=== PATIENT | female | born 1980 | race Two or more races ===

== ENCOUNTER 2024-12-22 03:20 | Inpatient (IN) | payer OTHER ==
[~2024-12-22] VITALS: Ht 160 cm; Wt 73.1 kg
[2024-12-22 04:03] LABS: Urine Bacteria None Seen /hpf (None Seen)
[2024-12-22 04:25] LABS: Urine Blood Negative /uL (Negative); Urine Clarity Turbid (Clear); Urine Color Yellow (Yellow); Urine Mucus FEW (None Seen); Urine Protein, UAD TRACE (Negative); Urine Specific Gravity 1.019 (1.001-1.035); Urine Squamous Epithelial Cell MOD /hpf (<5); Urine Urobilinogen Normal (Negative); Urine WBC 3 /HPF (0-5); Urine pH 6.5 (5.0-9.0)
--- NOTE | 2024-12-22 04:36 | ED.PDOC ---
GI ASSESSMENT HPI Comments 44 year old female presents to the ED with a chief complaint of epigastric pain onset yesterday (12/21/2024) around 12:00. Patient states she began experiencing epigastric pain, described as an aching sensation as well as nausea, vomiting, diarrhea, sweats. Patient denies any past medical history as well as constipation, chest pain, shortness of breath, fevers, chills, congestion, cough, sick contact, dysuria, hematuria. No other symptoms or modifying factors present at this time. 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 Family History Family History: Reviewed,noncontributory to illness, No family hx of Cancer, No family hx of DM, No family hx of Heart panda, No family hx of HTN, No family hx ofKidney panda, No family hx of Liver panda, No family hx of Lung panda, No family hx of Stroke Social History Smoker: Non-Smoker Alcohol: Occasionally Drugs: Denies Drug Use Lives In: Home Constitutional: reports: sweats; denies: chills, diaphoresis, fatigue, fever, malaise, weakness, others EENTM: denies: blurred vision, double vision, ear bleeding, ear discharge, ear drainage, ear pain, ear ringing, eye pain, eye redness, hearing loss, mouth pain, mouth swelling, nasal discharge, nose bleeding, nose congestion, nose pain, photophobia, tearing, throat pain, throat swelling, voice changes, others Respiratory: denies: cough, hemoptysis, orthopnea, SOB at rest, shortness of breath, SOB with excertion, stridor, wheezing, others Cardiovascular: denies: chest pain, dizzy spells, diaphoresis, Dyspnea on exertion, edema, irregular heart beat, left arm pain, lightheadedness, palpitations, PND, syncope, others Gastrointestinal: reports: abdominal pain, diarrhea, nausea, vomiting; denies: abdomen distended, blood streaked bowels, constipated, dysphagia, difficulty swallowing, hematemesis, melena, poor appetite, poor fluid intake, rectal bleeding, rectal pain, others Genitourinary: denies: abnormal vagina bleeding, burning, dyspareunia, dysuria, flank pain, frequency, hematuria, incontinence, pain, , vagina discharge, urgency, others Neurological: denies: dizziness, fainting, headache, left sided numbness, left sided weakness, numbness, paresthesia, pre-existing deficit, right sided numbness, right sided weakness, seizure, speech problems, tingling, tremors, weakness, others Musculoskeletal: denies: back pain, gout, joint pain, joint swelling, muscle pain, muscle stiffness, neck pain, others Integumetry: denies: bruises, change in color, change in hair/nails, dryness, laceration, lesions, lumps, rash, wounds, others Allergic/Immunocompromised: denies: Difficulty Healing, Frequent Infections, Hives, Itching, others Hematologic/Lymphatic: denies: anemia, blood clots, easy bleeding, easy bruising, swollen glands, others Endocrine: denies: excessive hunger, excessive sweating, excessive thirst, excessive urination, flushing, intolerance to cold, intolerance to heat, unexplained weight gain, unexplained weight loss, others Psychiatric: denies: anxiety, bipolar disorder, depression, hopeless, panic disorder, schizophrenia, sleepless, suicidal, others All Other Systems: Reviewed and Negative Physical Exam General Appearance: Moderate Distress HEENT: Other (Moist mucous membranes) Neck: Full Range of Motion, Normal Inspection Respiratory: Lungs Clear, No Accessory Muscle Use, No Respiratory Distress, Normal Breath Sounds Cardiovascular: No Edema, No JVD, Regular Rate/Rhythm Breast Exam: Deferred Gastrointestinal: Epigastric, LUQ, RUQ, Soft, Tenderness Genitalia: Deferred Pelvic: Deferred Rectal: Deferred Extremities: Normal inspection, Normal range of motion, Non-tender, No pedal edema Neurologic: Alert (Oriented x4), Other (Tearful. Ambulatory without difficulty. No gross focal deficit.) Cerebellar Function: NOT DONE Reflexes: NOT DONE Skin: Dry, Normal Color, Warm Lymphatic: NOT DONE Was a procedure done? Was a procedure done?: No GI differential Dx Differential Diagnosis: Appendicitis, Diverticular disease, Gastritis/PUD, Gastroenteritis, Inflammatory BD, Ischemic Bowel, Pancreatitis, UTI, Dehydration, Electrolyte Imbalance, Food Poisoning, , Bacterial, Parasitic, Viral, Hypovolemia, Renal Failure, Stress Ulcer, Kidney Stone X-Ray, Labs, Meds, VS Vital Signs Date Time Temp Pulse Resp B/P (MAP) Pulse Ox O2 Delivery O2 Flow Rate FiO2 12/22/24 11:51 84 16 109/66 (80) 99 12/22/24 10:33 16 97 Room Air* 0 21 12/22/24 09:15 90 18 131/80 12/22/24 08:51 96 18 96 Room Air 12/22/24 08:51 99.2 98 18 128/86 (100) 96 99.2 12/22/24 08:40 92 22 131/79 12/22/24 06:19 80 16 141/85 (103) 100 12/22/24 06:17 80 16 141/85 12/22/24 04:56 109 16 140/90 12/22/24 04:51 98.9 109 16 140/90 (107) 96 98.9 12/22/24 04:51 109 16 96 Room Air* 0 21 12/22/24 03:34 98.2 127 20 150/81 (104) 98 Lab Test 12/22/24 04:11 12/22/24 03:40 Range/Units White Blood Count 9.1 4.4-10.8 10^3/uL Red Blood Count 4.79 4.0-5.20 10^6/uL Hemoglobin 12.9 12.2-16.2 g/dL Hematocrit 38.6 36.0-46.0 % Mean Corpuscular Volume 80.6 80.0-100.0 fL Mean Corpuscular Hemoglobin 26.9 L 28.0-32.0 pg Mean Corpuscular Hemoglobin Concent 33.4 32.0-36.0 g/dL Red Cell Distribution Width 16.1 H 11.8-14.3 % Platelet Count 253 140-450 10^3/uL Mean Platelet Volume 9.0 6.9-10.8 fL Neutrophils (%) (Auto) 81.6 H 37.0-80.0 % Lymphocytes (%) (Auto) 10.4 10.0-50.0 % Monocytes (%) (Auto) 7.1 0.0-12.0 % Eosinophils (%) (Auto) 0.2 0.0-7.0 % Basophils (%) (Auto) 0.7 0.0-2.0 % Neutrophils # (Auto) 7.4 1.6-8.6 10 ^3/uL Lymphocytes # (Auto) 0.9 0.4-5.4 10 ^3/uL Monocytes # (Auto) 0.6 0-1.3 10 ^3/uL Eosinophils # (Auto) 0 0-0.8 10 ^3/uL Basophils # (Auto) 0.1 0-0.2 10 ^3/uL Nucleated Red Blood Cells 0.1 % Platelet Estimate Adequate Sodium Level 137 136-145 mmol/L Potassium Level 4.3 3.5-5.1 mmol/L Chloride Level 102 98-107 mmol/L Carbon Dioxide Level 26 20-31 mmol/L Anion Gap 9 5-15 Blood Urea Nitrogen 8 L 9-23 mg/dL Creatinine 0.81 0.550-1.02 mg/dL Glomerular Filtration Rate Calc 93 >90 mL/min BUN/Creatinine Ratio 9.9 L 10.0-20.0 Serum Glucose 131 H 74-106 mg/dL Calcium Level 10.1 8.7-10.4 mg/dL Total Bilirubin 1.1 H 0.2-1.0 mg/dL Aspartate Amino Transferase (AST) 228 H 13-40 U/L Alanine Aminotransferase (ALT) 136 H 7-40 U/L Alkaline Phosphatase 105 46-116 U/L Total Protein 7.6 5.7-8.2 g/dL Albumin 4.9 H 3.2-4.8 g/dL Lipase > 3500 H 12-53 U/L Beta HCG, Quantitative 0.2 L 1.5-4.2 mIU/mL Urine Color Yellow Yellow Urine Clarity Turbid H Clear Urine pH 6.5 5.0-9.0 Urine Specific [place] 1.019 1.001-1.035 Urine Protein Trace H Negative Urine Ketones Trace Negative Urine Blood Negative Negative /uL Urine Nitrite Negative Negative Urine Bilirubin Negative Negative Urine Urobilinogen Normal Negative mg/dL Urine Leukocyte Esterase Trace Negative /uL Urine RBC 3 0 - 4 /hpf Urine Microscopic WBC 3 0-5 /HPF Urine Squamous Epithelial Cells Mod <5 /hpf Urine Bacteria None seen None Seen /hpf Urine Mucus Few None Seen Urine Glucose Normal Normal mg/dL Current Medications Medications (Trade) Dose Ordered Sig/Akira Route Start Time Stop Time Status Last Admin Sodium Chloride 1,000 ml @ 1,000 mls/hr Q1H ONCE IV 12/22/24 04:15 12/22/24 05:14 DC 12/22/24 04:56 Ondansetron HCl (Zofran) 4 mg ONCE ONCE IV 12/22/24 04:15 12/22/24 04:16 DC 12/22/24 04:57 Morphine Sulfate 4 mg ONCE ONCE IV 12/22/24 04:15 12/22/24 04:16 DC 12/22/24 04:56 Pantoprazole Sodium (Protonix) 40 mg ONCE ONCE IV 12/22/24 04:15 12/22/24 04:16 DC 12/22/24 04:57 Morphine Sulfate 4 mg ONCE ONCE IV 12/22/24 08:45 12/22/24 08:46 DC 12/22/24 08:40 Ondansetron HCl (Zofran) 4 mg ONCE ONCE IV 12/22/24 08:45 12/22/24 08:46 DC 12/22/24 08:40 Sodium Chloride 2,000 ml @ 1,000 mls/hr Q2H ONCE IV 12/22/24 09:15 12/22/24 11:14 DC 12/22/24 09:16 PROCEDURE(s): ABPL - CT AB PEL WO CON-NO ORAL OR IV REASON: epig pain n/v/d ORDER NUMBER(s): [id number], ACCESSION NUMBER(s): [id number] EXAM: CT Abdomen and Pelvis With Intravenous Contrast CLINICAL INDICATION: epig pain n/v/d TECHNIQUE: Axial computed tomography images of the abdomen and pelvis with intravenous contrast. This CT exam was performed using one or more of the following dose reduction techniques: automated exposure control, adjustment of the mA and/or kV according to patient size, and/or use of iterative reconstruction technique. CONTRAST: COMPARISON: None FINDINGS: LUNG BASES: Unremarkable. No mass. No consolidation. ABDOMEN: LIVER: Unremarkable. No mass. GALLBLADDER AND BILE DUCTS: Unremarkable. No calcified stones. No ductal dilation. PANCREAS: There is inflammation around the pancreas consistent with acute pancreatitis. No abscess or pseudocyst. No ductal dilation. SPLEEN: Unremarkable. No splenomegaly. ADRENALS: Unremarkable. No mass. KIDNEYS AND URETERS: Unremarkable. No solid mass. No hydronephrosis. STOMACH AND BOWEL: Unremarkable. No obstruction. No mucosal thickening. PELVIS: APPENDIX: No findings to suggest acute appendicitis. BLADDER: Unremarkable. No mass. REPRODUCTIVE: Unremarkable as visualized. ABDOMEN and PELVIS: INTRAPERITONEAL SPACE: Unremarkable. No free air. No significant fluid collection. BONES/JOINTS: No acute fracture. No dislocation. SOFT TISSUES: Unremarkable. VASCULATURE: Unremarkable. No abdominal aortic aneurysm. LYMPH NODES: Unremarkable. No enlarged lymph nodes. OTHER FINDINGS: . . . .. IMPRESSION: There is inflammation around the pancreas consistent with acute pancreatitis. No abscess or pseudocyst. X-Ray, Labs, Meds, VS Comment 44-year-old female with no significant past medical history complaining of epigastric pain, nausea and vomiting Vitals remarkable for heart rate 127, BP 150/81 Exam remarkable for epigastric, left upper quadrant and right upper quadrant tenderness to palpation Rhythm strip independently interpreted by me: Sinus tach, rate 109, no ectopy. CT abdomen and pelvis: IMPRESSION: There is inflammation around the pancreas consistent with acute pancreatitis. No abscess or pseudocyst. CBC unremarkable, metabolic panel remarkable for total bilirubin 1.1, AST 228, ALT 136, lipase greater than 3500, hCG negative, UA unremarkable Patient treated with the following in the ED: 1 L 0.9 normal saline IV bolus, morphine 4 mg IV, Zofran 4 mg IV, Protonix 40 mg IV On re-evaluation, patient states pain has somewhat improved but is still present. Vitals were stable. Plan is to admit the patient for pain and emesis control and GI evaluation. Addendum by Dr. Alex: Patient was signed out to me by the outgoing physician. The patient was noted to have elevated total bili, AST and ALT. Patient also noted have elevated lipase. There was a discussion about a complaining MRCP. Dr. Ruiz reached out to Dr. Meza (per report) he was eventually approved the MRCP. MRCP had multiple findings including choledocholithiasis, cholecystitis, enlarged common bile duct stone and acute pancreatitis. Dr. Ruiz reached out to our technology professional surgeon who suggested transfer as they will need an ERCP. Patient was tent atively accepted by Dr. Newell at [facility]. GI at [facility] states that MRCP is read as no stone in the common bile duct. The patient may have had a stone that she has been past. I recached back out to Dr. Carranza. The plan of action is to admit the patient for acute pancreatitis and acute cholecystitis. They should be medically managed. Once the pancreatitis is resolved, Dr. Wood will reassess the need for a cholecystectomy. This may be as an outpatient. The patient was given Zosyn and 2L IVF bolus. Total critical care time: Approximately 92 minutes Due to a high probability of clinically significant, life threatening deterioration, the patient required my highest level of preparedness to intervene emergently and I personally spent this critical care time directly and personally managing the patient. This critical care time included obtaining a history; examining the patient; pulse oximetry; ordering and review of studies; arranging urgent treatment with development of a management plan; evaluation of patient's response to treatment; frequent reassessment; and, discussions with other providers. This critical care time was performed to assess and manage the high probability of imminent, life-threatening deterioration that could result in multi-organ failure. It was exclusive of separately billable procedures and treating other patients and teaching time. Please see MDM section and the rest of the note for further information on patient assessment and treatment. Time of 1ST Reevaluation: 04:30 Reevaluation 1ST: Unchanged Patient Education/Counseling: Diagnosis, Treatment, Prognosis Family Education/Counseling: No Family Present Additional Information The following tests were ordered, and results were reviewed by me: UA, CBC, CMP, BETA HCG, LIPASE, UA, CT AB PEL WO CON I reviewed and agreed with the following test results read by other providers: CT AB PEL WO CON I discussed treatment and results with medical personnel and: patient, Departure 1 Departure Time of Disposition: 05:47 Impression: Primary Impression: Acute pancreatitis Qualified Codes: K85.90 - Acute pancreatitis without necrosis or infection, unspecified Disposition: ADMITTED INPATIENT Admit to: Med Surg Condition: Guarded Critical Care Note Critical Care Time?: Yes (>90min-critical care time only) Critical care comment: Total critical care time: Approximately 92 minutes Due to a high probability of clinically significant, life threatening deterioration, the patient required my highest level of preparedness to intervene emergently and I personally spent this critical care time directly and personally managing the patient. This critical care time included obtaining a history; examining the patient; pulse oximetry; ordering and review of studies; arranging urgent treatment with development of a management plan; evaluation of patient's response to treatment; frequent reassessment; and, discussions with other providers. This critical care time was performed to assess and manage the high probability of imminent, life-threatening deterioration that could result in multi-organ failure. It was exclusive of separately billable procedures and treating other patients and teaching time. Please see MDM section and the rest of the note for further information on patient assessment and treatment. Stability Stability form required: No Heart Score Heart Score: Heart Score Response (Comments) Value History N/A 0 EKG N/A 0 Age N/A 0 Risk Factors N/A 0 Troponin N/A 0 Total 0 I personally scribed for TRACY GOTTLIEB MD ([email or web address]) on 12/22/24 at 04:36. Electronically submitted by Mi Rivas ([email or web address]). I personally scribed for TRACY GOTTLIEB MD ([email or web address]) on 12/22/24 at 04:46. Electronically submitted by Mi Rivas ([email or web address]). TRACY GOTTLIEB MD Dec 22, 2024 04:36 SAMIR ALEX MD Dec 22, 2024 11:24
[2024-12-22 04:51] VITALS: PULSE 109; RESP 16; O2SAT 96
[2024-12-22 04:52] LABS: Eosinophils # (auto) 0 10 ^3/uL (0-0.8); Lymphocytes # (auto) 0.9 10 ^3/uL (0.4-5.4); Monocytes # (auto) 0.6 10 ^3/uL (0-1.3)
[2024-12-22 04:53] LABS: Basophils # (auto) 0.1 10 ^3/uL (0-0.2); Basophils % (auto) 0.7 % (0.0-2.0); Eosinophils % (auto) 0.2 % (0.0-7.0); Hematocrit 38.6 % (36.0-46.0); Hemoglobin 12.9 g/dL (12.2-16.2); Lymphocytes % (auto) 10.4 % (10.0-50.0); Mean Corpuscular Hemoglobin 26.9 pg (28.0-32.0); Mean Corpuscular Hgb Conc. 33.4 g/dL (32.0-36.0); Mean Corpuscular Volume 80.6 fL (80.0-100.0); Monocytes % (auto) 7.1 % (0.0-12.0); Neutrophils # (auto) 7.4 10 ^3/uL (1.6-8.6); Neutrophils % (auto) 81.6 % (37.0-80.0); Nucleated Red Blood Cells % 0.1 %; Platelet Count (auto) 253 10^3/uL (140-450); Red Blood Cells 4.79 10^6/uL (4.0-5.20); Red Cell Distribution Width 16.1 % (11.8-14.3); White Blood Cell 9.1 10^3/uL (4.4-10.8)
[2024-12-22] MEDS: MORPHINE SULFATE 4 MG/ML SYR/VIAL IV ONE ×2 (04:56→08:40)
[2024-12-22] MEDS: SODIUM CHLORIDE 0.9% 1,000 ML IV ONE ×2 (04:56→14:14)
[2024-12-22] MEDS: PANTOPRAZOLE 40 MG/10 ML VIAL INJ IV ONE (04:57)
[2024-12-22] MEDS: ONDANSETRON HCL 4 MG/2 ML VIAL IV ONE ×3 (04:57→14:14)
[2024-12-22 05:00] LABS: Alkaline Phosphatase 105 U/L (46-116); Anion Gap 9 (5-15); BUN/Creatinine Ratio 9.9 (10.0-20.0); Bilirubin, Total 1.1 mg/dL (0.2-1.0); Calcium 10.1 mg/dL (8.7-10.4); Carbon Dioxide 26 mmol/L (20-31); Chloride 102 mmol/L (98-107); Potassium 4.3 mmol/L (3.5-5.1); Sodium 137 mmol/L (136-145); Total Protein 7.6 g/dL (5.7-8.2)
[2024-12-22 05:04] LABS: Alanine Aminotransferase 136 U/L (7-40); Albumin 4.9 g/dL (3.2-4.8); Aspartate Aminotransferase 228 U/L (13-40); Blood Urea Nitrogen 8 mg/dL (9-23); Glucose 131 mg/dL (74-106)
[2024-12-22 05:23] LABS: Platelet Estimate Adequate
--- NOTE | 2024-12-22 05:24 | DVH ---
EXAM: CT Abdomen and Pelvis With Intravenous Contrast CLINICAL INDICATION: epig pain n/v/d TECHNIQUE: Axial computed tomography images of the abdomen and pelvis with intravenous contrast. Th is CT exam was performed using one or more of the following dose reduction techniques: automated exp osure control, adjustment of the mA and/or kV according to patient size, and/or use of iterative zacarias nstruction technique. CONTRAST: COMPARISON: None FINDINGS: LUNG BASES: Unremarkable. No mass. No consolidation. ABDOMEN: LIVER: Unremarkable. No mass. GALLBLADDER AND BILE DUCTS: Unremarkable. No calcified stones. No ductal dilation. PANCREAS: There is inflammation around the pancreas consistent with acute pancreatitis. No abscess or pseudocyst. No ductal dilation. SPLEEN: Unremarkable. No splenomegaly. ADRENALS: Unremarkable. No mass. KIDNEYS AND URETERS: Unremarkable. No solid mass. No hydronephrosis. STOMACH AND BOWEL: Unremarkable. No obstruction. No mucosal thickening. PELVIS: APPENDIX: No findings to suggest acute appendicitis. BLADDER: Unremarkable. No mass. REPRODUCTIVE: Unremarkable as visualized. ABDOMEN and PELVIS: INTRAPERITONEAL SPACE: Unremarkable. No free air. No significant fluid collection. BONES/JOINTS: No acute fracture. No dislocation. SOFT TISSUES: Unremarkable. VASCULATURE: Unremarkable. No abdominal aortic aneurysm. LYMPH NODES: Unremarkable. No enlarged lymph nodes. OTHER FINDINGS: . . . .. IMPRESSION: There is inflammation around the pancreas consistent with acute pancreatitis. No abscess or pseudoc yst.
[2024-12-22 05:29] LABS: Lipase > 3500 U/L (12-53)
--- NOTE | 2024-12-22 06:50 | DVH ---
EXAM: US Abdomen Limited, Right Upper Quadrant CLINICAL INDICATION: r/o gallstone pancreatitis TECHNIQUE: Real-time ultrasound of the right upper quadrant with image documentation. COMPARISON: None FINDINGS: LIVER: Ill-defined echogenic lesion in the right hepatic lobe measuring 5.7 x 3.3 x 3.1 cm could re present focal fatty infiltration. This can be further evaluated with CT scan with and without contras t. Liver measures up to 16.0 cm. No intrahepatic bile duct dilation. GALLBLADDER: Cholelithiasis. Positive Sanchez's. COMMON BILE DUCT: Unremarkable as visualized. No stones. No dilation. Common bile duct measures 0.11 cm in diameter. PANCREAS: Pancreas is echogenic and appears edematous. RIGHT KIDNEY: Right kidney measures up to 8.8 cm. No stones. No hydronephrosis. OTHER FINDINGS: . . . .. IMPRESSION: 1. Ill-defined echogenic lesion in the right hepatic lobe measuring 5.7 x 3.3 x 3.1 cm could represe nt focal fatty infiltration. This can be further evaluated with CT scan with and without contrast. . 2. Cholelithiasis with positive Sanchez's sign concerning for evolving acute cholecystitis. Concurre nt acute pancreatitis can not be excluded.
[2024-12-22] MEDS: SODIUM CHLORIDE 0.9% 2,000 ML IV ONE (09:16)
--- NOTE | 2024-12-22 10:30 | DVH ---
CLINICAL INFORMATION: Pancreatitis. TECHNIQUE: Multisequence multiplanar MRI images of the abdomen were obtained without IV contrast. Alejandro naranjo T2-weighted MRCP images were obtained. 3D MRCP images were created. COMPARISON: CT dated 12/22/2024. Ultrasound dated 12/22/2024. FINDINGS: Mass in the posterior right hepatic lobe measures up to 6.9 cm in greatest dimension, not w ell characterized without postcontrast images. Multiple gallstones are visualized in the gallbladder. There is gallbladder wall thickening pericholecystic fluid. Common bile duct measures up to 8 mm in diameter, mildly dilated. No filling defect or stricture identified in the common bile duct on MRCP i mages. Pancreatic duct appears unremarkable. Moderate peripancreatic inflammatory changes and small a mount of peripancreatic fluid consistent with reported clinical history of acute pancreatitis. No org anized fluid collection identified at this time. Adrenal glands and kidneys appear grossly unremarkab le. No other abnormality identified in the abdomen. IMPRESSION: 1. Cholelithiasis with gallbladder wall thickening and pericholecystic fluid, suspicious for acute ch olecystitis in the appropriate clinical setting. 2. Findings consistent with acute pancreatitis in the appropriate clinical setting. 3. Common bile duct is mildly dilated. No filling defect or stricture identified in the common bile duct on MRCP. 4. Mass in the right hepatic lobe is not well evaluated without postcontrast imaging. Nonemergent [facility] mass protocol MRI recommended.
[2024-12-22 10:33] VITALS: RESP 16; O2SAT 97
[2024-12-22] MEDS ORDERED: NITROGLYCERIN 0.4 MG SL TAB SL PRN (12:45)
[2024-12-22] MEDS ORDERED: MORPHINE SULFATE INJ 2 MG/ml SYRG IV PRN (12:45)
--- NOTE | 2024-12-22 12:53 | DVHHP2 ---
Admitting Diagnosis: abd pain History of Present Illness HPI 44 F comes to ER for abd pain and noted to have cholecystitis on MRCP imaging, no CBD stone, however lipase 3500 suggestive of gallstone pancreatitis. SHe will be admitted for surgical eval and supportive care. Past Medical History Cardiac: No pertinent Hx Central Nervous System: No pertinent Hx GI: No pertinent Hx Hemotology/Oncology: No pertinent Hx Hepatobiliary: No pertinent Hx ENT: No pertinent Hx Review of Systems Constitutional: No symptom reported Eyes: No symptom reported Cardiovascular: No symptom reported Gastrointestinal: Nausea, Vomiting, Abdominal Pain Musculoskeletal: No symptom reported Skin: No symptom reported Psychiatric: No symptom reported Endocrine: No symptom reported H&P Exam Vital Signs Vital Signs Date Time Temp Pulse Resp B/P (MAP) Pulse Ox O2 Delivery O2 Flow Rate FiO2 12/22/24 11:51 84 16 109/66 (80) 99 12/22/24 10:33 Room Air* 0 21 12/22/24 08:51 99.2 99.2 General Appeara: Well developed Neck Exam: Non-tender Nasal Exam: Normal inspection Pulmonary/Respiratory: Normal inspection Cardiovascular/Chest: Normal inspection Labs/Xrays Labs Test 12/22/24 04:11 12/22/24 03:40 Range/Units White Blood Count 9.1 4.4-10.8 10^3/uL Red Blood Count 4.79 4.0-5.20 10^6/uL Hemoglobin 12.9 12.2-16.2 g/dL Hematocrit 38.6 36.0-46.0 % Mean Corpuscular Volume 80.6 80.0-100.0 fL Mean Corpuscular Hemoglobin 26.9 L 28.0-32.0 pg Mean Corpuscular Hemoglobin Concent 33.4 32.0-36.0 g/dL Red Cell Distribution Width 16.1 H 11.8-14.3 % Platelet Count 253 140-450 10^3/uL Mean Platelet Volume 9.0 6.9-10.8 fL Neutrophils (%) (Auto) 81.6 H 37.0-80.0 % Lymphocytes (%) (Auto) 10.4 10.0-50.0 % Monocytes (%) (Auto) 7.1 0.0-12.0 % Eosinophils (%) (Auto) 0.2 0.0-7.0 % Basophils (%) (Auto) 0.7 0.0-2.0 % Neutrophils # (Auto) 7.4 1.6-8.6 10 ^3/uL Lymphocytes # (Auto) 0.9 0.4-5.4 10 ^3/uL Monocytes # (Auto) 0.6 0-1.3 10 ^3/uL Eosinophils # (Auto) 0 0-0.8 10 ^3/uL Basophils # (Auto) 0.1 0-0.2 10 ^3/uL Nucleated Red Blood Cells 0.1 % Platelet Estimate Adequate Sodium Level 137 136-145 mmol/L Potassium Level 4.3 3.5-5.1 mmol/L Chloride Level 102 98-107 mmol/L Carbon Dioxide Level 26 20-31 mmol/L Anion Gap 9 5-15 Blood Urea Nitrogen 8 L 9-23 mg/dL Creatinine 0.81 0.550-1.02 mg/dL Glomerular Filtration Rate Calc 93 >90 mL/min BUN/Creatinine Ratio 9.9 L 10.0-20.0 Serum Glucose 131 H 74-106 mg/dL Calcium Level 10.1 8.7-10.4 mg/dL Total Bilirubin 1.1 H 0.2-1.0 mg/dL Aspartate Amino Transferase (AST) 228 H 13-40 U/L Alanine Aminotransferase (ALT) 136 H 7-40 U/L Alkaline Phosphatase 105 46-116 U/L Total Protein 7.6 5.7-8.2 g/dL Albumin 4.9 H 3.2-4.8 g/dL Lipase > 3500 H 12-53 U/L Beta HCG, Quantitative 0.2 L 1.5-4.2 mIU/mL Urine Color Yellow Yellow Urine Clarity Turbid H Clear Urine pH 6.5 5.0-9.0 Urine Specific [place] 1.019 1.001-1.035 Urine Protein Trace H Negative Urine Ketones Trace Negative Urine Blood Negative Negative /uL Urine Nitrite Negative Negative Urine Bilirubin Negative Negative Urine Urobilinogen Normal Negative mg/dL Urine Leukocyte Esterase Trace Negative /uL Urine RBC 3 0 - 4 /hpf Urine Microscopic WBC 3 0-5 /HPF Urine Squamous Epithelial Cells Mod <5 /hpf Urine Bacteria None seen None Seen /hpf Urine Mucus Few None Seen Urine Glucose Normal Normal mg/dL Assessment/Plan Primary Diagnosis 1) Acute cholecystitis 2) Gallstone pancreatitis plan; admit med surg. NPO, IV fluids, antiemetics, pain control, surgery consult, MRCP shows no CBD stone, AM labs, PT/INR, repeat lipase in AM, will follow medically Plan discussed with: Other (n) SEYMOUR MEDINA MD Dec 22, 2024 12:53
[2024-12-22] MEDS ORDERED: hydrALAZINE HCL 20 MG/ML VL IV PRN (13:00)
--- NOTE | 2024-12-22 13:20 | DVH ---
CHEST RADIOGRAPH Indication: preop Technique: Single frontal view of the chest was obtained Comparison: None FINDINGS: Lines and Tubes: None Lungs: Left basilar atelectasis. The right lung is clear. Pleura: No effusion. No pneumothorax. Cardiomediastinal contours: Unremarkable Bones: No acute osseous abnormality. IMPRESSION: 1. Left basilar atelectasis.
[2024-12-22 13:46] LABS: INR 1.03 (0.9-1.15); Prothrombin Time 10.9 sec (9.3-11.8)
[2024-12-22] MEDS: MORPHINE SULFATE INJ 2 MG/ml SYRG IV SCH (14:15)
[2024-12-22] MEDS: PIPERACILLIN-TAZOB 3.375GM 100 ML IV SCH (15:47)
[2024-12-22 19:00] VITALS: BP 128/77; PULSE 88; RESP 22; TEMP 98.3; O2SAT 97
[2024-12-22 20:00] VITALS: BP 101/58; PULSE 80; RESP 18; TEMP 97.8; O2SAT 97
[2024-12-22 21:00] VITALS: BP 125/77; PULSE 88; RESP 29; TEMP 98.4; O2SAT 97
[2024-12-23] VITALS (8 sets, daily range): BP systolic 105–135; BP diastolic 59–80; PULSE 79–100; RESP 16–25; TEMP 98–98.8; O2SAT 95–99
--- NOTE | 2024-12-23 06:32 | DVHPN2 ---
Progress Note Date Seen: Dec 23, 2024 Medical Necessity Reason Pt with a Central, PICC or Fol: No Subjective Patient reports: No new complaints Review of Systems: CVS:Normal, RESPIRATORY:Normal, GI:Normal Objective vital signs Vital Sign Date Time Temp Pulse Resp B/P (MAP) Pulse Ox O2 Delivery O2 Flow Rate FiO2 12/23/24 05:26 87 20 108/68 12/23/24 01:00 98.2 95 98.2 12/22/24 20:00 Room Air* 0 21 Total Intake and Output 12/22/24 12/22/24 12/23/24 15:00 23:00 07:00 Intake Total 2000 ml 100 ml Balance 2000 ml 100 ml medications Current Medications Medications Dose Ordered Sig/Akira Route Start Time Stop Time Status Last Admin Dose Admin Nitroglycerin 0.4 mg Q5MINP PRN SL 12/22/24 12:45 Morphine Sulfate 2 mg Q30M PRN IV 12/22/24 12:45 Morphine Sulfate 2 mg Q4HP IV 12/22/24 14:00 12/22/24 14:15 2 MG Hydralazine HCl 10 mg Q4HP PRN IV 12/22/24 13:00 Piperacillin Sod/ Tazobactam Sod 100 ml @ 25 mls/hr Q6HR IV 12/22/24 15:15 12/23/24 05:17 25 MLS/HR Examination: GENERAL:Normal, LUNGS:Normal, CVS:Normal, ABDOMEN:Normal laboratory and microbiology Laboratory Tests 12/22/24 04:11 Test 12/22/24 04:11 Range/Units Serum Glucose 131 H 74-106 mg/dL Problem List/Assessment/Plan Problem List/Assessment/Plan 1) Acute cholecystitis 2) Gallstone pancreatitis plan; NPO, IV hydration, pain control, IV ABx, ljpase trending down, repeat labs pending for this AM, surgical consult, will follow along medically Plan discussed with: Other (n) SEYMOUR MEDINA MD Dec 23, 2024 06:32
[2024-12-23] MEDS: SODIUM CHLORIDE 0.9% 1,000 ML IV SCH (06:53)
[2024-12-23 07:28] LABS: Basophils # (auto) 0 10 ^3/uL (0-0.2); Basophils % (auto) 0.4 % (0.0-2.0); Eosinophils # (auto) 0 10 ^3/uL (0-0.8); Eosinophils % (auto) 0.6 % (0.0-7.0); Hematocrit 32.8 % (36.0-46.0); Hemoglobin 10.7 g/dL (12.2-16.2); Lymphocytes # (auto) 0.9 10 ^3/uL (0.4-5.4); Lymphocytes % (auto) 15.2 % (10.0-50.0); Mean Corpuscular Hemoglobin 26.2 pg (28.0-32.0); Mean Corpuscular Hgb Conc. 32.6 g/dL (32.0-36.0); Mean Corpuscular Volume 80.3 fL (80.0-100.0); Monocytes # (auto) 0.4 10 ^3/uL (0-1.3); Neutrophils # (auto) 4.6 10 ^3/uL (1.6-8.6); Neutrophils % (auto) 76.8 % (37.0-80.0); Platelet Count (auto) 187 10^3/uL (140-450); Red Blood Cells 4.09 10^6/uL (4.0-5.20); Red Cell Distribution Width 16.4 % (11.8-14.3); White Blood Cell 5.9 10^3/uL (4.4-10.8)
[2024-12-23 07:42] LABS: Albumin 3.9 g/dL (3.2-4.8); Alkaline Phosphatase 80 U/L (46-116); Anion Gap 8 (5-15); Aspartate Aminotransferase 47 U/L (13-40); BUN/Creatinine Ratio 8.6 (10.0-20.0); Bilirubin, Total 0.9 mg/dL (0.2-1.0); Blood Urea Nitrogen 6 mg/dL (9-23); Calcium 8.9 mg/dL (8.7-10.4); Carbon Dioxide 23 mmol/L (20-31); Chloride 107 mmol/L (98-107); Glucose 79 mg/dL (74-106); Lipase 225 U/L (12-53); Potassium 3.5 mmol/L (3.5-5.1); Sodium 138 mmol/L (136-145); Total Protein 5.9 g/dL (5.7-8.2)
[2024-12-23 07:53] LABS: Alanine Aminotransferase 68 U/L (7-40)
--- NOTE | 2024-12-23 14:53 | DVHINCON2 ---
Date of service: Dec 23, 2024 Family History: FHx: pneumonia G8 FATHER Allergies: Coded Allergies: NO KNOWN ALLERGIES (Unverified , 12/22/24) Current Medications Current Medications Medications (Trade) Dose Ordered Sig/Akira Route PRN Reason Start Time Stop Time Status Last Admin Piperacillin Sod/ Tazobactam Sod 100 ml @ 25 mls/hr Q6HR IV 12/22/24 15:15 12/23/24 12:28 Sodium Chloride 1,000 ml @ 100 mls/hr Q10H IV 12/23/24 06:30 12/23/24 06:53 Morphine Sulfate 2 mg Q4HP PRN IV PAIN SCALE 7 THRU 10 12/23/24 16:30 Vital Signs Vital Signs Date Time Temp Pulse Resp B/P (MAP) Pulse Ox O2 Delivery O2 Flow Rate FiO2 12/23/24 13:28 98.2 100 18 113/72 (86) 98 98.2 12/23/24 08:00 Room Air* 0 21 Labs/Diagnostic Data Labs Test 12/23/24 06:37 12/22/24 13:02 12/22/24 04:11 12/22/24 03:40 Range/Units White Blood Count 5.9 # 4.4-10.8 10^3/uL Red Blood Count 4.09 4.0-5.20 10^6/uL Hemoglobin 10.7 #L 12.2-16.2 g/dL Hematocrit 32.8 #L 36.0-46.0 % Mean Corpuscular Volume 80.3 80.0-100.0 fL Mean Corpuscular Hemoglobin 26.2 L 28.0-32.0 pg Mean Corpuscular Hemoglobin Concent 32.6 32.0-36.0 g/dL Red Cell Distribution Width 16.4 H 11.8-14.3 % Platelet Count 187 140-450 10^3/uL Mean Platelet Volume 8.8 6.9-10.8 fL Neutrophils (%) (Auto) 76.8 37.0-80.0 % Lymphocytes (%) (Auto) 15.2 10.0-50.0 % Monocytes (%) (Auto) 7.0 0.0-12.0 % Eosinophils (%) (Auto) 0.6 0.0-7.0 % Basophils (%) (Auto) 0.4 0.0-2.0 % Neutrophils # (Auto) 4.6 1.6-8.6 10 ^3/uL Lymphocytes # (Auto) 0.9 0.4-5.4 10 ^3/uL Monocytes # (Auto) 0.4 0-1.3 10 ^3/uL Eosinophils # (Auto) 0 0-0.8 10 ^3/uL Basophils # (Auto) 0 0-0.2 10 ^3/uL Nucleated Red Blood Cells 0.0 % Sodium Level 138 136-145 mmol/L Potassium Level 3.5 3.5-5.1 mmol/L Chloride Level 107 98-107 mmol/L Carbon Dioxide Level 23 20-31 mmol/L Anion Gap 8 5-15 Blood Urea Nitrogen 6 L 9-23 mg/dL Creatinine 0.70 0.550-1.02 mg/dL Glomerular Filtration Rate Calc 111 >90 mL/min BUN/Creatinine Ratio 8.6 L 10.0-20.0 Serum Glucose 79 74-106 mg/dL Calcium Level 8.9 8.7-10.4 mg/dL Total Bilirubin 0.9 0.2-1.0 mg/dL Aspartate Amino Transferase (AST) 47 H 13-40 U/L Alanine Aminotransferase (ALT) 68 H 7-40 U/L Alkaline Phosphatase 80 46-116 U/L Total Protein 5.9 5.7-8.2 g/dL Albumin 3.9 3.2-4.8 g/dL Lipase 225 H 12-53 U/L Prothrombin Time 10.9 9.3-11.8 sec Prothrombin Time INR 1.03 0.9-1.15 Platelet Estimate Adequate Beta HCG, Quantitative 0.2 L 1.5-4.2 mIU/mL Urine Color Yellow Yellow Urine Clarity Turbid H Clear Urine pH 6.5 5.0-9.0 Urine Specific [place] 1.019 1.001-1.035 Urine Protein Trace H Negative Urine Ketones Trace Negative Urine Blood Negative Negative /uL Urine Nitrite Negative Negative Urine Bilirubin Negative Negative Urine Urobilinogen Normal Negative mg/dL Urine Leukocyte Esterase Trace Negative /uL Urine RBC 3 0 - 4 /hpf Urine Microscopic WBC 3 0-5 /HPF Urine Squamous Epithelial Cells Mod <5 /hpf Urine Bacteria None seen None Seen /hpf Urine Mucus Few None Seen Urine Glucose Normal Normal mg/dL Assessment [id number] R/O AC CHOLECYSTITIS GALLSTONE PANCREATITIS LIPASE LFT ELEVATED BUT TRENDING DOWN CONSIDER LAP/OPEN CHOLECYSTECTOMY AM BASED ON ONGOING EVAL Plan discussed with: Patient FRANK HILTON MD Dec 23, 2024 14:53
--- NOTE | 2024-12-23 20:41 | DVHINCON2 ---
DATE OF CONSULTATION: 12/23/2024 HISTORY OF PRESENT ILLNESS: This patient is 44 years old, coming in with right upper quadrant pain, now feeling better, some nausea, no vomiting, no constipation, diarrhea. No hematemesis, melena. No bleeding per rectum. PAST MEDICAL HISTORY: No diabetes, hypertension. PAST SURGICAL HISTORY: No significant surgical history. PHYSICAL EXAMINATION: VITAL SIGNS: Afebrile, stable signs. HEENT: With no evidence of pallor, cyanosis, or jaundice. NECK: Supple, nontender with no thyromegaly, lymphadenopathy. CHEST AND LUNGS: Clear. HEART: Within normal limits. ABDOMEN: Soft, tender in the right upper quadrant with minimal rebound. EXTREMITIES: Unremarkable. NEUROLOGIC: Intact. CLINICAL IMPRESSION: Rule out acute gallstone induced pancreatitis. Her lipase levels were elevated, they are trending down and the liver enzymes also were elevated and are trending down. Gallbladder ultrasound shows gallstones with possible acute cholecystitis and also the MRCP is negative for CBD stone. PLAN: The plan would be to consider laparoscopic possible open cholecystectomy once the enzyme level comes trending down, and she does consent for surgery. Sree Flowers MD RG/CHUCHO TID: [id number] RECEIPT: [id number] cc: Antonio Brandt MD
[2024-12-24] VITALS (9 sets, daily range): BP systolic 99–120; BP diastolic 60–80; PULSE 75–92; RESP 15–19; TEMP 97.5–99.8; O2SAT 91–98
--- NOTE | 2024-12-24 06:51 | DVHPN2 ---
Progress Note Date Seen: Dec 24, 2024 Medical Necessity Reason Pt with a Central, PICC or Fol: No Subjective Patient reports: No new complaints Review of Systems: HEENT:Normal, RESPIRATORY:Normal, GI:Abnormal Objective vital signs Vital Sign Date Time Temp Pulse Resp B/P (MAP) Pulse Ox O2 Delivery O2 Flow Rate FiO2 12/24/24 05:00 97.9 92 15 120/65 (83) 97 97.9 12/23/24 20:00 Room Air* 0 21 Total Intake and Output 12/23/24 12/23/24 12/24/24 15:00 23:00 07:00 Intake Total 100 ml 500 ml 860 ml Output Total 1400 ml Balance 100 ml 500 ml -540 ml medications Current Medications Medications Dose Ordered Sig/Akira Route Start Time Stop Time Status Last Admin Dose Admin Nitroglycerin 0.4 mg Q5MINP PRN SL 12/22/24 12:45 Morphine Sulfate 2 mg Q30M PRN IV 12/22/24 12:45 Hydralazine HCl 10 mg Q4HP PRN IV 12/22/24 13:00 Piperacillin Sod/ Tazobactam Sod 100 ml @ 25 mls/hr Q6HR IV 12/22/24 15:15 12/24/24 06:28 25 MLS/HR Sodium Chloride 1,000 ml @ 100 mls/hr Q10H IV 12/23/24 06:30 12/23/24 06:53 100 MLS/HR Morphine Sulfate 2 mg Q4HP PRN IV 12/23/24 16:30 Examination: GENERAL:Normal, HEENT:Normal, LUNGS:Normal, CVS:Normal, ABDOMEN:Abnormal laboratory and microbiology Laboratory Tests 12/23/24 06:37 Test 12/23/24 06:37 Range/Units Serum Glucose 79 74-106 mg/dL Problem List/Assessment/Plan Problem List/Assessment/Plan 1) Acute cholecystitis 2) Gallstone pancreatitis plan; NPO, IV hydration, pain control, IV ABx, AM labs pending, surgery to plan for OR today, will follow along post-op Plan discussed with: Other (n) SEYMOUR MEDINA MD Dec 24, 2024 06:51
[2024-12-24] MEDS: ceFAZolin 1GM/50ML 0 ML IV ONE (07:53)
[2024-12-24 08:03] LABS: Albumin 4.3 g/dL (3.2-4.8); Alkaline Phosphatase 88 U/L (46-116); Anion Gap 11 (5-15); Aspartate Aminotransferase 23 U/L (13-40); BUN/Creatinine Ratio 14.9 (10.0-20.0); Basophils # (auto) 0 10 ^3/uL (0-0.2); Basophils % (auto) 0.4 % (0.0-2.0); Blood Urea Nitrogen 11 mg/dL (9-23); Calcium 9.4 mg/dL (8.7-10.4); Carbon Dioxide 22 mmol/L (20-31); Chloride 105 mmol/L (98-107); Eosinophils # (auto) 0 10 ^3/uL (0-0.8); Eosinophils % (auto) 0.5 % (0.0-7.0); Hematocrit 33.8 % (36.0-46.0); Lymphocytes # (auto) 0.9 10 ^3/uL (0.4-5.4); Lymphocytes % (auto) 12.8 % (10.0-50.0); Mean Corpuscular Hemoglobin 26.3 pg (28.0-32.0); Mean Corpuscular Hgb Conc. 32.6 g/dL (32.0-36.0); Mean Corpuscular Volume 80.9 fL (80.0-100.0); Monocytes # (auto) 0.6 10 ^3/uL (0-1.3); Monocytes % (auto) 8.9 % (0.0-12.0); Neutrophils # (auto) 5.3 10 ^3/uL (1.6-8.6); Neutrophils % (auto) 77.4 % (37.0-80.0); Platelet Count (auto) 192 10^3/uL (140-450); Potassium 3.7 mmol/L (3.5-5.1); Red Blood Cells 4.18 10^6/uL (4.0-5.20); Red Cell Distribution Width 15.9 % (11.8-14.3); Sodium 138 mmol/L (136-145); White Blood Cell 6.9 10^3/uL (4.4-10.8)
[2024-12-24 08:04] LABS: Total Protein 6.6 g/dL (5.7-8.2)
[2024-12-24 08:05] LABS: Alanine Aminotransferase 54 U/L (7-40); Bilirubin, Total 0.9 mg/dL (0.2-1.0); Glucose 71 mg/dL (74-106)
[2024-12-24 09:01] LABS: Lipase 82 U/L (12-53)
[2024-12-24] MEDS ORDERED: MIDAZOLAM HCL 2MG/2ML 2ml VIAL (1mg/ml) ONE (09:49)
[2024-12-24] MEDS ORDERED: fentaNYL CITRATE 100 MCG/2 ML VL ONE ×2 (09:49→10:06)
[2024-12-24] MEDS ORDERED: DexAMETHasone SOD PHOS 10MG/1ML VIAL INJ ONE (09:58)
[2024-12-24] MEDS ORDERED: METOPROLOL TARTRATE 1MG/1ML-5ML VIAL IV ONE (09:58)
[2024-12-24] MEDS ORDERED: ONDANSETRON HCL 4 MG/2 ML VIAL ONE (09:58)
[2024-12-24] MEDS: BUPIVACAINE 0.25% INJ 50ML VIAL ONE (10:57)
--- NOTE | 2024-12-24 11:02 | DVHOP2 ---
Operative Report [id number] AC CHOLECYSTITIS LAP CHOLECYSTECTOMY EBL 25 CC NO DRAINS NO COMPLICATIONS FRANK HILTON MD Dec 24, 2024 11:02
[2024-12-24] MEDS ORDERED: fentaNYL CITRATE 100 MCG/2 ML VL IV PRN (11:30)
[2024-12-24] MEDS: ONDANSETRON HCL 4 MG/2 ML VIAL IV ONE (11:30)
--- NOTE | 2024-12-24 11:36 | DVHOP ---
DATE OF SURGERY: 12/24/2024 PREOPERATIVE DIAGNOSES: Acute cholecystitis with resolving gallstone pancreatitis. POSTOPERATIVE DIAGNOSES: Acute cholecystitis with resolving gallstone pancreatitis. PROCEDURE: Laparoscopic cholecystectomy. SURGEON: Sree Flowers MD [employer] STRATEGIST: None. ANESTHESIA: General. ESTIMATED BLOOD LOSS: Close to 25 mL. DRAINS: No drains were used. COMPLICATIONS: No complication encountered. DESCRIPTION OF PROCEDURE: The patient was prepped and draped in the usual sterile fashion in the supine position and an infraumbilical incision was applied, was taken down to the fascia. The Veress needle was introduced and CO2 insufflation was started to a pressure of 15 mmHg. The needle was withdrawn, replaced by the 5 mm trocar and a telescope was introduced and the gallbladder was visualized. A 12 mm port was applied close to the xiphisternum and two 5 mm ports were applied more laterally in the subcostal line. With the instruments in place, the gallbladder was grasped at the fundus and infundibulum and the cystic duct and artery were , dissected out and clipped proximally and distally using Hem-o-John Paul clips. With the patient in the head up and right upper lateral position, the gallbladder was then from the liver bed using Harmonic dissection and the cystic duct and artery were , dissected out and clipped proximally and distally and divided in between making sure CBD was kept out of harm's way at all times and gallbladder being released from the liver bed using Harmonic device was released and placed in the EndoCatch bag and removed from the xiphisternal wound without any complication. Hemostasis was secured. Irrigation fluid was removed. The port sites were free from bleeding. EndoClose suture used for the fascial closure of the xiphisternal wound after the Goyo powder was applied to contain the bleeding close to the liver bed and then the EndoClose suture was used for the fascial closure of the xiphisternal wound. All the ports were withdrawn after all the CO2 been let out and the patient was placed back supine. It was then brought together using 3-0 Monocryl suture in a subcuticular fashion. Surgical glue was applied. The patient tolerated the procedure well and was taken back to recovery room in stable condition. MD ELEONORA Lucas/PREM/JOSE ALFREDO TID: [id number] RECEIPT: [id number] cc: Antonio Brandt MD
[2024-12-24] MEDS: MORPHINE SULFATE INJ 2 MG/ml SYRG IV PRN (15:56)
[2024-12-24] MEDS: PIPERACILLIN-TAZOB 3.375GM 100 ML IV SCH (21:03)
[2024-12-25 01:00] VITALS: BP 111/64; PULSE 77; RESP 18; TEMP 98.6; O2SAT 98
[2024-12-25 05:00] VITALS: BP 122/72; PULSE 68; RESP 22; TEMP 97.9; O2SAT 98
--- NOTE | 2024-12-25 06:18 | DVHPN2 ---
Progress Note Date Seen: Dec 25, 2024 Medical Necessity Reason Pt with a Central, PICC or Fol: No Objective vital signs Vital Sign Date Time Temp Pulse Resp B/P (MAP) Pulse Ox O2 Delivery O2 Flow Rate FiO2 12/25/24 05:00 97.9 68 22 122/72 (89) 98 97.9 12/24/24 20:00 Nasal Cannula* 3 32 Total Intake and Output 12/24/24 12/24/24 12/25/24 15:00 23:00 07:00 Intake Total 100 ml 120 ml 100 ml Output Total 0 ml Balance 100 ml 120 ml 100 ml medications Current Medications Medications Dose Ordered Sig/Akira Route Start Time Stop Time Status Last Admin Dose Admin Nitroglycerin 0.4 mg Q5MINP PRN SL 12/22/24 12:45 Morphine Sulfate 2 mg Q30M PRN IV 12/22/24 12:45 Hydralazine HCl 10 mg Q4HP PRN IV 12/22/24 13:00 Sodium Chloride 1,000 ml @ 100 mls/hr Q10H IV 12/23/24 06:30 12/24/24 12:45 100 MLS/HR Morphine Sulfate 2 mg Q4HP PRN IV 12/23/24 16:30 12/24/24 15:56 2 MG Piperacillin Sod/ Tazobactam Sod 100 ml @ 25 mls/hr Q8H IV 12/24/24 21:00 12/25/24 05:01 25 MLS/HR laboratory and microbiology Laboratory Tests 12/24/24 07:05 Test 12/24/24 07:05 Range/Units Serum Glucose 71 L 74-106 mg/dL Problem List/Assessment/Plan Problem List/Assessment/Plan AFEBRILE VSS ABD SOFT WOUNDS HEALING NO COMPLICATIONS LABS PENDING Plan discussed with: Patient My Orders My Orders Orders - FRANK HILTON MD Procedure Category Date Status Time Clear Liq Diet DIET 12/24/24 Transmitted Lunch FRANK HILTON MD Dec 25, 2024 06:18
[2024-12-25 08:00] VITALS: PULSE 78; RESP 14; O2SAT 100
[2024-12-25 08:57] VITALS: BP 123/68; PULSE 78; RESP 14; TEMP 98.2; O2SAT 100
[2024-12-25 09:45] LABS: Basophils # (auto) 0 10 ^3/uL (0-0.2); Basophils % (auto) 0.2 % (0.0-2.0); Eosinophils # (auto) 0 10 ^3/uL (0-0.8); Hemoglobin 10.4 g/dL (12.2-16.2); Lymphocytes # (auto) 1.1 10 ^3/uL (0.4-5.4); Monocytes # (auto) 0.5 10 ^3/uL (0-1.3)
[2024-12-25 09:48] LABS: Eosinophils % (auto) 0.2 % (0.0-7.0); Hematocrit 32.1 % (36.0-46.0); Lymphocytes % (auto) 17.9 % (10.0-50.0); Mean Corpuscular Hemoglobin 26.3 pg (28.0-32.0); Mean Corpuscular Hgb Conc. 32.4 g/dL (32.0-36.0); Mean Corpuscular Volume 81.2 fL (80.0-100.0); Monocytes % (auto) 8.9 % (0.0-12.0); Neutrophils # (auto) 4.3 10 ^3/uL (1.6-8.6); Neutrophils % (auto) 72.8 % (37.0-80.0); Platelet Count (auto) 222 10^3/uL (140-450); Red Blood Cells 3.95 10^6/uL (4.0-5.20); Red Cell Distribution Width 16.2 % (11.8-14.3); White Blood Cell 5.9 10^3/uL (4.4-10.8)
[2024-12-25 09:49] LABS: Albumin 4.1 g/dL (3.2-4.8); Alkaline Phosphatase 77 U/L (46-116); Anion Gap 7 (5-15); Aspartate Aminotransferase 40 U/L (13-40); BUN/Creatinine Ratio 10.7 (10.0-20.0); Bilirubin, Total 0.6 mg/dL (0.2-1.0); Carbon Dioxide 25 mmol/L (20-31); Glucose 104 mg/dL (74-106); Sodium 139 mmol/L (136-145); Total Protein 6.4 g/dL (5.7-8.2)
[2024-12-25 09:51] LABS: Alanine Aminotransferase 54 U/L (7-40); Blood Urea Nitrogen 8 mg/dL (9-23); Chloride 107 mmol/L (98-107)
[2024-12-25 10:27] VITALS: BP 123/68; PULSE 78; RESP 14; TEMP 98.2; O2SAT 100
--- NOTE | 2024-12-25 11:17 | DVHDS2 ---
New Physician D'charge PN Admitting Diagnosis Admitting Diagnosis abd pain Discharge Diagnosis cholecystitis s/p lap selam pancreatitis, resolved Operations or Procedures lap selam Reason(s) For Hospitalization Surgery Hospital Course 44 F who comes to ER for abd pain and lipase >3500. MRCP was done which revealed pancreatitis and cholecystitis however no CBD stone. She was admitted and kept NPO, started on IV fluids, IV abx and pain control. day to day her lipase trended down and surgery saw her who took her to the OR for laparoscopic cholecystectomy. this is post-op day 1, there were no complications and patient is tolerating her diet. She has no post-surgical drains and is cleared by surgery for discharge home, [facility] to arrange for PCP and outpt surgical follow up and patient to dc home today. Treatment Plan Discharge Condition of Discharge Good Disposition Home Discharge Instructions Diet: Cardiac 2g Na,low cholest Activity: No Restrictions, As Tolerated Medications: see med sheet Follow Up Care Follow Up/Referral: pcp surgery Discharge Statement: "Patient was advised to return to the ER or call 911 if any headaches, dizziness, shortness of breath, chest pain, abdominal pain, bleeding, fevers, or worsening of medical condition. Patient was counseled about treatment plan, medications, possible side effects, patientverbalized understanding. All questions were answered to the best of my ability. This discharge took greater then 30 minutes in planning, reviewing documentation, counseling the patient, and discussing with other team members." SEYMOUR MEDINA MD Dec 25, 2024 11:17
[2024-12-25] MEDS ORDERED: AUG875T PO (11:18)
[2024-12-25 13:30] VITALS: BP 104/62; PULSE 86; RESP 18; TEMP 98.9; O2SAT 98
[2024-12-26 08:42] LABS: Hepatitis B Surface Antigen Negative (Negative)
[2024-12-26 09:01] LABS: Hepatitis C Antibody Negative (Negative)
== END 2024-12-25 13:38 | disposition home or self-care (01) | DRG 263 ==
LOC: ER 03:20 → OVERFLOW 12:45 → WEST WING 19:05
PROVIDERS: ADMIT Student in an Organized Health Care Education/Training Program; ATTEND Student in an Organized Health Care Education/Training Program
PROC: 0FT44ZZ Resection of Gallbladder, Percutaneous Endoscopic Approach (ICD-10-PCS; principal; 2024-12-24 09:45)
DX: K85.10 Biliary acute pancreatitis without necrosis or infection (principal); K81.0 Acute cholecystitis; Z79.899 Other long term (current) drug therapy
CPT/HCPCS: 36415; 71045; 74176; 74181; 76705; 80053; 81001; 83690; 84702; 85025; 85610; 86803; 87340; 96361; 96365; 96375; 96376; 99291; 99292; G0378; J1100; J2250; J2405; J2470; J2543; J3490